=== PATIENT | male | born 1995 | race Caucasian/White ===

== ENCOUNTER 2023-08-10 22:43 | Emergency (ER) | payer OTHER ==
[2023-08-10] MEDS: Acetaminophen 325 MG Tab PO ONE (23:10)
[2023-08-10] MEDS: Ibuprofen 600 MG Tab PO ONE (23:10)
== END 2023-08-10 23:45 | disposition home or self-care (01) ==
LOC: MW.ED 22:43
DX: S99.912A Unspecified injury of left ankle, initial encounter (principal); Z75.8 Other problems related to medical facilities and other health care; W22.8XXA Striking against or struck by other objects, initial encounter; Y93.89 Activity, other specified; Y99.0 Civilian activity done for income or pay
CPT/HCPCS: 73600; 99283; A9270